=== PATIENT | female | born 1955 | race African-American/Black ===

== ENCOUNTER 2018-08-24 02:02 | Emergency (ER) | payer OTHER ==
[~2018-08-24] VITALS: Ht 160 cm; Wt 73.5 kg
[2018-08-24 03:02] VITALS: BP 133/70
== END 2018-08-24 06:16 | disposition left against medical advice (07) ==
LOC: ER 02:02
DX: R10.13 Epigastric pain (principal); Z53.21 Procedure and treatment not carried out due to patient leaving prior to being seen by health care provider

== ENCOUNTER 2018-09-29 12:51 | Emergency (ER) | payer OTHER ==
[~2018-09-29] VITALS: Ht 160 cm; Wt 74.4 kg
[2018-09-29 14:30] VITALS: BP 144/79
== END 2018-09-29 14:33 | disposition home or self-care (01) ==
LOC: ER 13:04
DX: R53.1 Weakness (principal); M54.12 Radiculopathy, cervical region; M19.90 Unspecified osteoarthritis, unspecified site; Z88.8 Allergy status to other drugs, medicaments and biological substances
CPT/HCPCS: 93005

== ENCOUNTER 2021-10-22 15:13 | Emergency (ER) | payer OTHER ==
[~2021-10-22] VITALS: Ht 162.6 cm; Wt 73.0 kg
[~2021-10-22 15:13] MED LIST: LISI-716 PO; PANT40TA2 PO; SUCR1TAB PO
[2021-10-22 16:22] LABS: Basophils # (auto) 0.1 10 ^3/uL (0-0.2); Eosinophils # (auto) 0.1 10 ^3/uL (0-0.8); Eosinophils % (auto) 1.2 % (0.0-7.0); Hematocrit 38.4 % (36.0-46.0); Hemoglobin 13.2 g/dL (12.2-16.2); Lymphocytes # (auto) 1.7 10 ^3/uL (0.4-5.4); Lymphocytes % (auto) 39.4 % (10.0-50.0); Mean Corpuscular Hemoglobin 29.9 pg (28.0-32.0); Mean Corpuscular Hgb Conc. 34.3 g/dL (32.0-36.0); Mean Corpuscular Volume 87.4 fL (80.0-100.0); Monocytes # (auto) 0.3 10 ^3/uL (0-1.3); Monocytes % (auto) 7.3 % (0.0-12.0); Neutrophils # (auto) 2.2 10 ^3/uL (1.6-8.6); Neutrophils % (auto) 50.1 % (37.0-80.0); Nucleated Red Blood Cells % 0.1 %; Red Cell Distribution Width 14.6 % (11.8-14.3); White Blood Cell 4.3 10^3/uL (4.4-10.8)
[2021-10-22 16:28] LABS: BUN/Creatinine Ratio 15.3; Calcium 9.2 mg/dL (8.5-10.1); Potassium 3.8 mmol/L (3.5-5.1)
[2021-10-22 16:33] LABS: Bilirubin, Total 0.2 mg/dL (0.2-1.0)
[2021-10-22] MEDS ORDERED: SUCR1SUS10 PO (18:00)
[2021-10-22] MEDS ORDERED: OMEP20TA85 PO (18:00)
[2021-10-22 18:26] VITALS: BP 128/63
== END 2021-10-22 18:30 | disposition home or self-care (01) ==
LOC: ER 15:13
DX: R07.89 Other chest pain (principal); K21.9 Gastro-esophageal reflux disease without esophagitis; I10 Essential (primary) hypertension; Z98.51 Tubal ligation status
CPT/HCPCS: 36415; 71046; 80053; 84484; 85025; 93005